=== PATIENT | female | born 1980 ===

== ENCOUNTER → 2018-11-04 | Outpatient (CLI) | payer OTHER ==
--- NOTE | 2018-11-05 08:39 | KCIC ---
CERVICAL SPINE WO CONTRAST History: Degenerative disc disease. Left-sided neck pain with left radiculopathy. Technique: Multiplanar, multi sequential noncontrast MR imaging was performed of the cervical spine. Comparison: CT October 21, 2018 Findings: Reversal the normal cervical lordosis. Otherwise, normal alignment. Normal vertebral body height. No fracture. Normal appearance of the cervical spinal cord. No pathologic signal abnormality. C2-C3: No canal or neuroforaminal narrowing. C3-C4: No canal or neuroforaminal narrowing. C4-C5: Minimal posterior disc bulge. No canal or neuroforaminal narrowing. Minimal cord flattening. C5-C6: Minimal posterior disc bulge. Minimal cord flattening. No canal or neuroforaminal narrowing. C6-C7: Minimal posterior disc bulge. No canal or neuroforaminal narrowing. C7-T1: No canal or neuroforaminal narrowing. Impression: 1. Mild multilevel cervical spondylosis with minimal cord flattening C4-C5 and C5-C6. 2. Reversal the normal cervical lordosis. Electronically signed by: Trenton Marie DO (11/05/2018 8:36 AM) [email or web address]
== END | disposition home or self-care (01) ==
LOC: KCIC MRI 16:32
DX: M47.812 Spondylosis without myelopathy or radiculopathy, cervical region (principal); M50.30 Other cervical disc degeneration, unspecified cervical region
CPT/HCPCS: 72141